=== PATIENT | male | born 1975 | race Caucasian/White ===

== ENCOUNTER → 2018-11-17 | Outpatient (CLI) | payer BC ==
[2018-11-17 09:20] LABS: HCT 45.5 % (39.0-53.0); HGB 14.9 gm/dL (13.0-17.5); MCH 28.4 pg (25.0-35.0); MCHC 32.8 g/dL (31.0-37.0); MCV 86.6 fL (80.0-100.0); Mean Platelet Volume 6.2; Platelet Count 253 k/uL (150-450); RBC 5.25 m/uL (4.30-5.90); RDW 12.6 % (11.5-15.5); WBC 7.4 k/uL (3.8-10.6)
[2018-11-17 09:28] LABS: Appearance,Urine Clear (Clear); Bilirubin,Urine Negative (Negative); Blood,Urine Negative (Negative); Color,Urine Yellow; Glucose,Urine (UA) Negative (Negative); Ketones,Urine Negative (Negative); Leukocyte Esterase,Urine Negative (Negative); Nitrite,Urine Negative (Negative); Protein,Urine Negative (Negative); Specific Gravity,Urine 1.014 (1.001-1.035); Urobilinogen,Urine <2.0 mg/dL (<2.0)
[2018-11-17 15:55] LABS: Albumin 4.3 g/dL (3.80-4.90); Albumin/Globulin Ratio 1.87 (1.60-3.17); Anion Gap 6.1 mmol/L (4.00-12.00); Calcium 9.4 mg/dL (8.7-10.3); Carbon Dioxide 28.9 mmol/L (21.6-31.8); Globulin 2.3 g/dL (1.6-3.3); LDL Cholesterol,Calculated 105.4 mg/dL (0.0-131.0); Potassium 4.5 mmol/L (3.5-5.5); Total Bilirubin 0.6 mg/dL (0.2-1.2); Total Protein 6.6 g/dL (6.2-8.2); VLDL Calculation 40.6 mg/dL (5.00-40.00)
== END | disposition home or self-care (01) ==
LOC: LABWHC1 08:24
PROVIDERS: ATTEND Family Medicine
DX: Z00.00 Encounter for general adult medical examination without abnormal findings (principal); R10.9 Unspecified abdominal pain
CPT/HCPCS: 36415; 80053; 80061; 81003; 82150; 83690; 85027

== ENCOUNTER → 2018-11-30 | Outpatient (CLI) | payer BC ==
--- NOTE | 2018-12-01 10:19 | CT ---
EXAMINATION TYPE: CT abdomen pelvis w con DATE OF EXAM: 11/30/2018 COMPARISON: None INDICATION: Right sided abdominal pain and back pain x3 weeks. DLP: 1659 mGycm, Automated exposure control for dose reduction was used. CONTRAST: 100ml mL of Isovue 300. Study performed with Oral Contrast TECHNIQUE: Axial images were obtained from above the diaphragm to the pubic rami in the axial plane a t 5 mm thick sections. Reconstructed images are reviewed on the computer in the coronal plane. FINDINGS: Limited CT sections are obtained the lung bases. The lung bases are clear. CT ABDOMEN: Liver: There is some vague hypodensity near the gallbladder bed fossa could be some focal fatty infil tration. Findings nonspecific. Follow-up is recommended. This area appears more homogenous on delayed postcontrast imaging and could be related to an atypical hemangioma measuring 1.8 cm. Series 3 image 29. Spleen: Normal Pancreas: Normal Adrenal glands: The adrenal glands are normal. Gallbladder: Normal Kidneys: No masses are evident. No hydronephrosis is present. No cysts are present. Delayed images were obtained through the kidneys, which remain unremarkable. Aorta: Normal Inferior vena cava: Normal. CT PELVIS: Loops of bowel within the abdomen and pelvis are normal. There are loops of bowel which are incom pletely distended or lack oral contrast limiting their evaluation. Appendix: Normal as visualized. Urinary bladder: Normal. Genitourinary structures: Prostate is normal. There are calcifications within the prostate. Osseous structures: No suspicious lytic or sclerotic lesions. IMPRESSIONS: 1. Nonspecific hypodensity within the liver which appears to enhance, is homogenous with the liver a djacent to the gallbladder bed fossa may be a hemangioma. Monitoring is recommended. Ultrasound or MR I could be a complimentary evaluation. 2. No suspicious abnormality to account for right-sided abdominal pain and back pain.
== END | disposition home or self-care (01) ==
LOC: RADCTMAIN 16:06
PROVIDERS: ATTEND Family Medicine
DX: K76.89 Other specified diseases of liver (principal); R10.9 Unspecified abdominal pain
CPT/HCPCS: 74177; Q9967

== ENCOUNTER → 2019-01-21 | Outpatient (CLI) | payer BC ==
--- NOTE | 2019-01-21 08:47 | US ---
EXAMINATION TYPE: US abdomen complete DATE OF EXAM: 01/21/2019 COMPARISON: CLINICAL HISTORY: R10.31 Right lower quadrant pain. NPO, RLQ/flank pain. CT. Per order, include appe ndix. No fever. EXAM MEASUREMENTS: Liver Length: 17.1 cm Gallbladder Wall: 0.2 cm CHD: 0.5 cm Spleen: 13.2 cm Right Kidney: 11.1 x 4.9 x 6.2 cm Left Kidney: 10.4 x 5.3 x 6.4 cm Pancreas: Head and tail obscured by overlying bowel gas Liver: Isoechoic lesion seen in right lobe, nonvascular = 2.0 x 1.6 x 1.5 Gallbladder: wnl Evidence for sonographic Powers's sign: neg CBD: Obscured by overlying bowel gas CHD: wnl Spleen: Appears upper limits of normal in size Right Kidney: wnl Left Kidney: wnl Upper IVC: wnl Abd Aorta: Limited visualization of proximal and mid portion of Aorta. No AAA visualized. RLQ scanned. Appendix not visualized. The intrahepatic portion of the IVC and proximal abdominal aorta are within normal limits. There is no evidence of cholelithiasis. Common bile duct is unremarkable. The visualized portions of the curiel creas are homogenous. The spleen is upper limits of normal. Kidneys are symmetric and free of hydro nephrosis. No renal lesions are seen. IMPRESSION: 1. Indeterminate nearly isoechoic hepatic lesion. In the absence of underlying hepatocellular disease this most likely represents a hemangioma. Additional hepatic lesion near the gallbladder fossa is be tter defined on CT and also likely represents a hemangioma. MRI liver could be performed to confirm m arked T2 hyperintensity of hemangiomas. 2. Spleen is upper limits of normal in size approaching criteria for splenomegaly.
== END | disposition home or self-care (01) ==
LOC: RADUSWWP 07:09
DX: K76.9 Liver disease, unspecified (principal)
CPT/HCPCS: 76700

== ENCOUNTER → 2019-08-12 | Outpatient (CLI) | payer BC ==
--- NOTE | 2019-08-12 12:38 | ECHOS ---
STRESS ECHOCARDIOGRAM INDICATIONS: Chest pain/vertigo MEDICATIONS: None. BASELINE HEART RATE: 66 BASELINE BLOOD PRESSURE: 112/55 MAXIMUM HEART RATE: 162 MAXIMUM BLOOD PRESSURE: 164/66 85% MPHR: 150 100% MPHR: 177 METS: 12.1 MAXIMUM STAGE REACHED: 4 TOTAL EXERCISE TIME: 11:00 CLINICAL INFORMATION: Baseline EKG revealed normal sinus rhythm without significant ST changes. Patient walked on standard Cy protocol for 11 minute achieved a maximal heart rate of 162 beats per minute which is more than 85% of predicted maximal. He developed fatigue and shortness of breath but did not have any angina or arrhythmia. EKG did not reveal any ST-segment changes to indicate ischemia. By EKG criteria, this is a negative stress test with good exercise capacity. Baseline echo images revealed normal wall motion and wall thickening of all segments. At peak exercise there was good augmentation of left ventricular wall motion and wall thickening of all segments suggesting that there is no evidence of stress-induced ischemia on this study. FINAL IMPRESSION: 1. Good exercise capacity with a negative stress test by EKG criteria. 2. Normal stress echocardiogram. MMODL / IJN: [id number] /
== END | disposition home or self-care (01) ==
LOC: RADNMMAIN 08:44
PROVIDERS: ATTEND Family Medicine
DX: R07.89 Other chest pain (principal)
CPT/HCPCS: 93351

== ENCOUNTER → 2020-05-24 | Outpatient (CLI) | payer BC | END | disposition home or self-care (01) | LOC: LABWHC1 09:26 | PROVIDERS: ATTEND Family Medicine | DX: Z20.828 Contact with and (suspected) exposure to other viral communicable diseases (principal) | CPT/HCPCS: U0003; C9803 ==

== ENCOUNTER → 2021-02-01 | Outpatient (CLI) | payer BC ==
--- NOTE | 2021-02-01 09:35 | CT ---
EXAMINATION TYPE: CT abdomen pelvis w con DATE OF EXAM: 02/01/2021 COMPARISON: 11/30/2018 CT scan, ultrasound 01/21/2019 HISTORY: upper abd pain CT DLP: 1193.8 mGycm Automated exposure control for dose reduction was used. CONTRAST: CT scan of the abdomen pelvis is performed with IV Contrast, patient injected with 100 mL of Isovue 3 00. FINDINGS- LUNG BASES-subsegmental changes involving both lungs most typical of atelectasis. 3 mm pulmonary nodu le anterior segment right lower lobe axial image 10. Findings stable from prior exam and therefore li eddie benign. LIVER/GB- 1.8 cm area of enhancement involving the dome of the liver may represent a flash hemangio ma. Other etiologies not excluded. No gallstones. Findings stable from prior exam. PANCREAS- No gross abnormality is seen. SPLEEN- No gross abnormality is seen. ADRENALS- No gross abnormality is seen. KIDNEYS/BLADDER- no hydronephrosis nephrolithiasis or renal mass. BOWEL-bowel gas pattern nonspecific with no obstruction. Changes of diverticulosis noted.. LYMPH NODES- No greater than 1cm abdominal or pelvic lymph nodes areappreciated. OSSEOUS STRUCTURES- No significant abnormality is seen. OTHER- Tarlov cysts noted involving the sacrum. Stable from prior exam. Incidental note made of smal l fat-containing inguinal hernia. Prostate calcifications. IMPRESSION- 1. Diverticulosis with no CT evidence of diverticulitis. 2. Stable appearing sub-5 mm pulmonary nodule unchanged from prior exam likely benign. 3. Stable hepatic lesion measuring 1.8 cm. Differential diagnosis would include a flash hemangioma. C orrelation with MRI could BE obtained for further evaluation as clinically warranted.
== END | disposition home or self-care (01) ==
LOC: RADCTMAIN 07:28
PROVIDERS: ATTEND Family Medicine
DX: K57.90 Diverticulosis of intestine, part unspecified, without perforation or abscess without bleeding (principal); K76.9 Liver disease, unspecified; R91.1 Solitary pulmonary nodule
CPT/HCPCS: 74177; Q9967